=== PATIENT | female | born 1995 | race Hispanic/Latino ===

== ENCOUNTER 2021-11-05 15:59 | Outpatient (CLI) | payer BC ==
[2021-11-05 16:41] LABS: Hemoglobin 12.4 g/dL (12.0-15.5); Mean Corpuscular HGB CONC 31.3 g/dL (32.0-36.0); Mean Corpuscular Hemoglobin 22.5 pg (27.0-33.0); Mean Corpuscular Volume 71.7 fl (81.6-98.3); Mean Platelet Volume 8.7 fl (7.4-10.4); Platelet Count 423 10x3/uL (150-450); RBC Distribution Width 15.8 % (11.5-14.5); Red Blood Cell (RBC) Count 5.52 10x6/uL (3.90-5.03); White Blood Cell (WBC) Count 8.7 10x3/uL (3.5-10.5)
[2021-11-05 16:52] LABS: BHCG - Serum Negative (NEGATIVE); Pregs Control Background? CLEAR/WHITE (CLR/WHITE); Pregs Control Bar Appear? YES (CONTROL BAR)
[2021-11-06 00:19] LABS: SARS-CoV-2 PCR by NAA Not Detected (NotDetected)
== END 2021-11-05 16:00 | disposition home or self-care (01) ==
LOC: CSHLAB 15:59
PROVIDERS: ATTEND Obstetrics & Gynecology
DX: Z01.812 Encounter for preprocedural laboratory examination (principal); Z20.822 Contact with and (suspected) exposure to COVID-19; D25.9 Leiomyoma of uterus, unspecified; N92.0 Excessive and frequent menstruation with regular cycle; R10.2 Pelvic and perineal pain
CPT/HCPCS: 84703; 85027; 86850; 86900; 86901; U0003; U0005

== ENCOUNTER 2021-11-10 08:14 | Observation (INO) | payer BC ==
[2021-11-05 16:41] LABS: Hemoglobin 12.4 g/dL (12.0-15.5); Mean Corpuscular HGB CONC 31.3 g/dL (32.0-36.0); Mean Corpuscular Hemoglobin 22.5 pg (27.0-33.0); Mean Corpuscular Volume 71.7 fl (81.6-98.3); Mean Platelet Volume 8.7 fl (7.4-10.4); Platelet Count 423 10x3/uL (150-450); RBC Distribution Width 15.8 % (11.5-14.5); Red Blood Cell (RBC) Count 5.52 10x6/uL (3.90-5.03); White Blood Cell (WBC) Count 8.7 10x3/uL (3.5-10.5)
[2021-11-05 16:52] LABS: BHCG - Serum Negative (NEGATIVE); Pregs Control Background? CLEAR/WHITE (CLR/WHITE); Pregs Control Bar Appear? YES (CONTROL BAR)
[2021-11-09 10:53] VITALS: BMI 29.5
[2021-11-10] MEDS ORDERED: Bupivacaine PF 0.5% 30 ML VIAL ONE (08:26)
[2021-11-10] MEDS ORDERED: EPINEPHrine 1 MG/ML AMP ONE (08:26)
[2021-11-10] MEDS ORDERED: Gabapentin 300 MG CAP ONE (08:41)
[2021-11-10] MEDS ORDERED: Lidocaine 1% MPF 2 ML VIAL ONE (08:42)
[2021-11-10] MEDS ORDERED: Famotidine/PF 20 mg/2ml Vial ONE (08:42)
[2021-11-10] MEDS ORDERED: CeleCOXIB 100 MG CAP ONE (08:42)
[2021-11-10] MEDS ORDERED: Tranexamic Acid 1,000 MG/10 ML VIAL ONE (08:46)
[2021-11-10] MEDS ORDERED: ceFAZolin 2 GM/Dextrose 50 ML IVPB ONE (09:14)
[2021-11-10] MEDS ORDERED: Midazolam HCl 2 mg/2 ml Vial ONE ×2 (10:57→12:07)
[2021-11-10] MEDS ORDERED: PROPOFOL 20 ML ONE (12:07)
[2021-11-10] MEDS ORDERED: Fentanyl 250 MCG/5 ML VIAL ONE (12:07)
[2021-11-10] MEDS ORDERED: Lidocaine 1% PF 5 ML VIAL ONE (12:08)
[2021-11-10] MEDS ORDERED: Ketorolac Tromethamine 30 MG/ML VIAL ONE (12:08)
[2021-11-10] MEDS ORDERED: Glycopyrrolate 0.2 MG/ML 5 ML SYRINGE ONE (12:08)
[2021-11-10] MEDS ORDERED: Dexamethasone 20 MG/5 ML VIAL ONE (12:08)
[2021-11-10] MEDS ORDERED: Ondansetron PF 4 MG/2 ML Vial ONE (12:08)
[2021-11-10] MEDS ORDERED: Rocuronium Bromide 10 MG/ML (10ML VIAL) ONE (12:08)
[2021-11-10] MEDS ORDERED: Calcium Gluc 4.6 MEQ/10 ML (100 MG/ML) ONE (12:08)
[2021-11-10] MEDS ORDERED: Meperidine HCl/PF 25 MG/ML VIAL ONE (15:19)
[2021-11-10] MEDS ORDERED: traMADol HCl 50 MG TAB PO PRN (15:23)
[2021-11-10] MEDS ORDERED: Bisacodyl 10 MG SUPP PR PRN (15:23)
[2021-11-10] MEDS ORDERED: Ondansetron PF 4 MG/2 ML Vial IVP PRN (15:23)
[2021-11-10] MEDS ORDERED: Fentanyl 100 MCG/2 ML VIAL SLOW IVP PRN (15:23)
[2021-11-10] MEDS ORDERED: HYDROcodone/Acetaminophen 5/325 mg Tablet PO PRN (15:23)
[2021-11-10] MEDS ORDERED: diphenhydrAMINE 25 MG CAP PO PRN (15:23)
[2021-11-10] MEDS ORDERED: Fentanyl 100 MCG/2 ML VIAL ONE (15:54)
[2021-11-10] MEDS: Sodium Chloride 0.9% 1,000 ML IV SCH ×2 (17:02→23:30)
[2021-11-10] MEDS ORDERED: Ketorolac Tromethamine 30 MG/ML VIAL IVP SCH (20:00)
[2021-11-10] MEDS: HYDROcodone/Acetaminophen 5/325 mg Tablet PO PRN (20:39)
[2021-11-11] MEDS: Simethicone Chewable 80 MG TAB PO PRN ×2 (00:54→09:17)
[2021-11-11] MEDS: Sodium Chloride 0.9% 1,000 ML IV SCH ×2 (00:56→08:57)
[2021-11-11 04:04] LABS: Mean Corpuscular HGB CONC 31.4 g/dL (32.0-36.0); Mean Corpuscular Hemoglobin 22.5 pg (27.0-33.0); Mean Corpuscular Volume 71.5 fl (81.6-98.3); Mean Platelet Volume 8.5 fl (7.4-10.4); Platelet Count 311 10x3/uL (150-450); RBC Distribution Width 15.8 % (11.5-14.5); Red Blood Cell (RBC) Count 4.45 10x6/uL (3.90-5.03); White Blood Cell (WBC) Count 13.7 10x3/uL (3.5-10.5)
[2021-11-11] MEDS: HYDROcodone/Acetaminophen 5/325 mg Tablet PO PRN ×2 (05:17→09:17)
[2021-11-11] MEDS ORDERED: Ibuprofen 800 MG TAB PO SCH (06:00)
[2021-11-11 11:56] VITALS: BP 90/55; TEMP 98.7
== END 2021-11-11 13:40 | disposition home or self-care (01) ==
LOC: CSHSDC 08:14 → CSHPP 16:29 → INTOOBSV 16:29
PROVIDERS: ADMIT Obstetrics & Gynecology; ATTEND Obstetrics & Gynecology
PROC: 0UB94ZZ Excision of Uterus, Percutaneous Endoscopic Approach (ICD-10-PCS; principal; 2021-11-10)
PROC: 8E0W8CZ Robotic Assisted Procedure of Trunk Region, Via Natural or Artificial Opening Endoscopic (ICD-10-PCS; 2021-11-10)
DX: D25.1 Intramural leiomyoma of uterus (principal); D25.2 Subserosal leiomyoma of uterus; N94.6 Dysmenorrhea, unspecified; K59.00 Constipation, unspecified; Z20.822 Contact with and (suspected) exposure to COVID-19
CPT/HCPCS: 36415; 84703; 85027; 86850; 86900; 86901; 88305; C1776; J0171; J0610; J0690; J1100; J1885; J2175; J2250; J2405; J2704; J3010; J7050; S0020; S0028; U0003; U0005